=== PATIENT | female | born 1965 | race Caucasian/White ===

== ENCOUNTER → 2019-07-06 | Outpatient (CLI) | payer OTHER ==
[~2019-07-06] MED LIST: IBUP600 PO; Norco 5-325 Ta1 EACH PO
[2019-07-07 19:26] LABS: Campylobacter Sp Detected (NOT DETECT)
[2019-07-07 19:27] LABS: Adenovirus F 40/41 Not Detected (NOT DETECT); Astrovirus Not Detected (NOT DETECT); Cryptosporidium Not Detected (NOT DETECT); Cyclospora Cayetanensis Not Detected (NOT DETECT); E. Coli O157 Not Detected (NOT DETECT); Entamoeba Histolytica Not Detected (NOT DETECT); Enteroaggregative E. coli-EAEC Not Detected (NOT DETECT); Enteropathogenic E. coli-EPEC Not Detected (NOT DETECT); Enterotoxigenic E. coli-ETEC Not Detected (NOT DETECT); Giardia Lamblia Not Detected (NOT DETECT); Norovirus GI/GII Not Detected (NOT DETECT); Plesiomonas Shigelloides Not Detected (NOT DETECT); Rotavirus A Not Detected (NOT DETECT); Salmonella Sp Not Detected (NOT DETECT); Sapovirus Not Detected (NOT DETECT); Shiga Toxin-prod E. coli-STEC Not Detected (NOT DETECT); Shigella/Enteroin E. coli-EIEC Not Detected (NOT DETECT); Vibrio Cholerae Not Detected (NOT DETECT); Vibrio Sp Not Detected (NOT DETECT); Yersinia Enterocolitica Not Detected (NOT DETECT)
== END | disposition home or self-care (01) ==
LOC: LAB EV 18:00
PROVIDERS: Family Medicine
DX: K52.9 Noninfective gastroenteritis and colitis, unspecified (principal)
CPT/HCPCS: 0097U

== ENCOUNTER 2022-11-26 09:43 | Day surgery (SDC) | payer OTHER ==
[~2022-11-26] VITALS: Ht 177.8 cm; Wt 63.4 kg
== END 2022-11-26 12:32 | disposition home or self-care (01) ==
LOC: ORSCSDS 09:43
PROVIDERS: Internal Medicine Gastroenterology
PROC: 0DBK8ZX Excision of Ascending Colon, Via Natural or Artificial Opening Endoscopic, Diagnostic (ICD-10-PCS; principal; 2022-11-26 11:30)
PROC: 0DBM8ZX Excision of Descending Colon, Via Natural or Artificial Opening Endoscopic, Diagnostic (ICD-10-PCS; principal; 2022-11-26 11:30)
DX: Z12.11 Encounter for screening for malignant neoplasm of colon (principal); D12.2 Benign neoplasm of ascending colon; D12.4 Benign neoplasm of descending colon; K57.30 Diverticulosis of large intestine without perforation or abscess without bleeding
CPT/HCPCS: 88305; J2704; J7120

== ENCOUNTER 2023-05-06 12:07 | Observation (INO) | payer OTHER ==
[~2023-05-06] VITALS: Ht 157.5 cm; Wt 65.4 kg
[2023-05-06 12:44] LABS: BASOPHILS ABSOLUTE AUTO 0.02 K/mm3 (0.00-0.23); BASOPHILS PERCENT AUTO 0 % (0-2); EOSINOPHILS ABSOLUTE AUTO 0.12 K/mm3 (0.00-0.68); EOSINOPHILS PERCENT AUTO 2 % (0-6); Hematocrit 40.3 % (33.0-51.0); Hemoglobin 13.8 g/dL (11.5-16.0); IMMATURE GRAN ABSOLUTE AUTO 0.02 K/mm3 (0.00-0.10); IMMATURE GRAN PERCENT AUTO 0 % (0-1); LYMPHOCYTES ABSOLUTE AUTO 1.78 K/mm3 (0.84-5.20); LYMPHOCYTES PERCENT AUTO 31 % (21-46); MONOCYTES ABSOLUTE AUTO 0.45 K/mm3 (0.16-1.47); MONOCYTES PERCENT AUTO 8 % (4-13); Mean Corpuscular HGB 32.2 pg (26.0-34.0); Mean Corpuscular HGB Conc 34.2 g/dL (31.5-36.5); Mean Corpuscular Volume 94 fL (80-100); Mean Platelet Volume 9.2 fL (9.1-12.4); NEUTROPHILS ABSOLUTE AUTO 3.39 K/mm3 (1.96-9.15); NEUTROPHILS PERCENT AUTO 59 % (41-73); Platelet Count 220 K/mm3 (150-400); RDW Coefficient Variation 11.6 % (11.7-14.2); RDW Standard Deviation 39.3 fL (35.1-46.3); Red Blood Cell Count 4.29 M/mm3 (3.80-5.20); White Blood Cell Count 5.78 K/mm3 (4.00-11.30)
[2023-05-06] MEDS ORDERED: ZYRTEC10 M2 PO (13:00)
[2023-05-06 13:16] LABS: Albumin, Blood 4.3 g/dL (3.4-5.0); Albumin/Globulin Ratio 1.4 (0.8-1.8); Bilirubin, Total 0.5 mg/dL (0.1-1.0); Bun/Creatinine Ratio 19.8 (12.0-20.0); Calcium, Blood 8.9 mg/dL (8.5-10.1); Creatinine, Blood 0.76 mg/dL (0.40-1.00); Potassium, Blood 3.9 mmol/L (3.5-5.5); Total Protein, Blood 7.3 g/dL (6.4-8.2)
[2023-05-06 15:17] LABS: Magnesium, Blood 2.3 mg/dL (1.6-2.4)
[2023-05-06 15:21] LABS: Thyroid Stimulating Hormone 1.9 uIU/mL (0.360-4.800)
[2023-05-06] MEDS ORDERED: ESTRADIOL42.5 GM VAG (17:02)
[2023-05-06] MEDS ORDERED: Avita20 G1 TOP (17:02)
[2023-05-06 17:23] VITALS: BP 128/74
--- NOTE | 2023-05-06 19:33 | NUR ---
PT ADMITTED TODAY FOR C/OF CP. PT A/O X 4 ON ADMISSION. DENIED CP ON ARRIVAL AND HAS HAD NO COMPLAINTS THROUGHOUT THE SHIFT. PT IS IND WITH AMBULATION. TELE REPORTS NSR. PT ORIENTED TO ROOM, CALL LIGHT, DANGERS OF USING IGNITION SOURCES AND SMOKING IN THE HOSPITAL. PT VU AND DENIES HAVING IGNITION SOURCES. NO EVIDENCE OF USING IGNITION SOURCES WHILE ROUNDING TODAY.
[2023-05-06 20:27] VITALS: BP 106/63
--- NOTE | 2023-05-07 04:56 | NUR ---
PATIENT SLEPT WELL THROUGH THE NIGHT, ALERT AND ORIENTED X4, VSS, NO CHEST PAIN OR SOB REPORTED. IND IN ROOM, AND CALLS TO MAKE NEEDS KNOWN. IV SL AFTER 1X 500 NS. WILL CONT TO MONITOR.
[2023-05-07 05:47] VITALS: BP 94/56
[2023-05-07 05:50] VITALS: BP 97/62
[2023-05-07 07:02] LABS: Albumin, Blood 3.3 g/dL (3.4-5.0); Albumin/Globulin Ratio 1.2 (0.8-1.8); Bilirubin, Total 0.6 mg/dL (0.1-1.0); Bun/Creatinine Ratio 16.5 (12.0-20.0); Calcium, Blood 8.6 mg/dL (8.5-10.1); Creatinine, Blood 0.67 mg/dL (0.40-1.00); Globulin, Blood 2.8 g/dL (2.2-4.0); Potassium, Blood 3.8 mmol/L (3.5-5.5); Total Protein, Blood 6.1 g/dL (6.4-8.2)
[2023-05-07 07:50] VITALS: BP 104/69
[2023-05-07 08:51] LABS: CHOL/HDL RATIO 2.2; Cholesterol 158 mg/dL (50-200); HDL Cholesterol 73 mg/dL (>39); Low Density Lipoprotein Chol 73 mg/dL (0-110); Triglycerides 61 mg/dL (30-160); Very Low Density Lipoprot Chol 12 mg/dL (6-32)
[2023-05-07] MEDS ORDERED: FAMO20 PO (15:09)
--- NOTE | 2023-05-07 16:46 | NUR ---
PT DISCHARGED HOME TODAY. PT EDUCATED ON DISCHARGE INSTRUCTIONS AND MEDICATIONS. DR. HERNANDEZ DISCUSSED STRESS TEST RESULTS WITH HER. PT CESAR. PT ASSISTED WITH PACKING UP BELONGINGS. PT DENIED NEED FOR ESCORT AND AMBULATED TO POV WITH SISTER WITH BELONGINGS.
== END 2023-05-07 16:32 | disposition home or self-care (01) ==
LOC: ER 12:07 → MEDS 12:08 → ENPENDDIS 05-07 14:17 → MEDS 05-07 16:32
PROVIDERS: Family Medicine; Student in an Organized Health Care Education/Training Program; ADMIT Hospitalist
DX: R07.89 Other chest pain (principal); K21.9 Gastro-esophageal reflux disease without esophagitis; Z88.0 Allergy status to penicillin
CPT/HCPCS: 36415; 71046; 80048; 80053; 80061; 83735; 84443; 84484; 85025; 93005; 93010; 93017; 96360; 96361; 99285-25; A9270; G0378; J7040

== ENCOUNTER 2024-08-13 11:03 | Day surgery (SDC) | payer OTHER ==
[~2024-08-13] VITALS: Ht 177.8 cm; Wt 65.0 kg
[~2024-08-13 11:03] MED LIST changes: +Avita20 G1 TOP; +ESTRADIOL42.5 GM VAG; +FAMO20 PO; +ZYRTEC10 M2 PO
[2024-08-13] MEDS ORDERED: Lactated Ringer's 1,000 ML IV ONE (11:56)
[2024-08-13] MEDS ORDERED: CeFAZolin Sodium 2,000 MG VIAL ONE (11:57)
[2024-08-13] MEDS ORDERED: Bupivacaine 0.5% HCl 5 MG/ML 30MLVIAL ONE (12:04)
[2024-08-13] MEDS ORDERED: Midazolam HCl 1MG / ML 2ML Vial ONE (12:04)
[2024-08-13] MEDS ORDERED: NS 50 ML IV ONE (12:07)
--- NOTE | 2024-08-13 12:15 | NUR ---
08/13/24 1215 Lyn Rubio [address] GREENE
[2024-08-13] MEDS ORDERED: Aspir 8181 MG PO (12:19)
[2024-08-13] MEDS ORDERED: propofoL 20 ML IV ONE (12:21)
[2024-08-13] MEDS ORDERED: Dexamethasone Sod Phos 10 MG/ML 1ML VIAL ONE (12:27)
[2024-08-13] MEDS ORDERED: Ondansetron HCl 2 MG / ML 2ML Vial ONE (12:27)
[2024-08-13] MEDS ORDERED: Ketorolac Tromethamine 30mg Vial ONE (13:40)
[2024-08-13] MEDS ORDERED: FentaNYL Citrate 50 MCG/ML 2 ML Injection ONE (13:49)
[2024-08-13] MEDS ORDERED: HYDROcodone 5-APAP 325 TAB ONE (14:18)
[2024-08-13 14:32] VITALS: BP 117/78
== END 2024-08-13 15:00 | disposition home or self-care (01) ==
LOC: ORSCSDS 11:03
PROVIDERS: Orthopaedic Surgery
PROC: 0PSH04Z Reposition Right Radius with Internal Fixation Device, Open Approach (ICD-10-PCS; principal; 2024-08-13 12:30)
DX: S52.571A Other intraarticular fracture of lower end of right radius, initial encounter for closed fracture (principal); W18.30XA Fall on same level, unspecified, initial encounter
CPT/HCPCS: A9270; C1713; J0690; J1100; J1885; J2250; J2405; J2704; J3010